=== PATIENT | female | born 1995 | race Caucasian/White ===

== ENCOUNTER 2020-04-25 12:45 | Outpatient (REF) | payer OTHER, MEDICAID, SELFPAY | END 2020-04-25 12:46 | disposition home or self-care (01) | LOC: HO.LAB 12:45 | PROVIDERS: PCP Internal Medicine; Visit Provider Internal Medicine | DX: Z20.822 Contact with and (suspected) exposure to COVID-19 (principal) | CPT/HCPCS: 36415; C9803; U0003 ==

== ENCOUNTER 2021-10-21 12:58 | Outpatient (REF) | payer OTHER, SELFPAY ==
[2021-10-21 13:13] LABS: MANUAL DIFF FLAG NO
[2021-10-21 13:24] LABS: Basophils Absolute Auto 0.1 X10*3/uL (0.0-0.2); Basophils Percent Auto 0.8 % (0-2); Eosinophils Absolute Auto 0.3 X10*3/uL (0.0-0.4); Eosinophils Percent Auto 3.3 % (0-4); Hematocrit 38.1 % (37.0-47.0); Hemoglobin 12.9 g/dl (12.0-16.0); Imm Gran Abs Auto 0.02 X10*3/uL (0.00-0.03); Imm Gran Pct Auto 0.2 % (0.0-0.4); Lymphocytes Absolute Auto 3.1 X10*3/uL (1.2-4.9); Mean Corpuscular HGB Conc 33.9 g/dl (31.0-35.0); Mean Corpuscular Hemoglobin 30.3 pg (27.0-33.0); Mean Corpuscular Volume 89.4 fL (80.0-98.0); Mean Platelet Volume 10.7 fL (9.4-12.3); Monocytes Absolute Auto 0.7 X10*3/uL (0.1-1.2); Monocytes Percent Auto 7.7 % (2-11); Neutrophils Absolute Auto 4.7 x10*3/uL (2.0-8.3); Platelet Count 270 X10*3/uL (160-400); Red Blood Count 4.26 X10*6/uL (4.20-5.50); Red Cell Distribution Width 12.2 % (11.0-16.0); White Blood Count 8.9 X10*3/uL (4.8-10.8)
[2021-10-21 13:50] LABS: Alanine Aminotransferase 11 U/L (0-31); Albumin Level 4.5 g/dL (3.5-5.0); Alkaline Phosphatase 157 U/L (39-117); Anion Gap 10 (12-20); Aspartate Amino Transferase 16 U/L (5-31); Bilirubin Total 0.6 mg/dL (0.0-1.0); Blood Urea Nitrogen 12 mg/dL (9-16); Calcium 8.7 mg/dL (8.4-10.2); Carbon Dioxide 23 mmol/L (22-29); Chloride 110 mmol/L (96-108); Cholesterol 154 mg/dL; Estimated Glomerular Filt Rate > 60; Glucose Random 81 mg/dL (60-115); HDL Cholesterol 47 mg/dL; LDL Cholesterol Calculated 100 mg/dl; Potassium 4.2 mmol/L (3.3-5.1); Sodium 139 mmol/L (135-145); Total Protein 7.3 g/dL (6.5-8.0); Triglycerides 36 mg/dL
== END 2021-10-21 12:59 | disposition home or self-care (01) ==
LOC: HO.LAB 12:58
PROVIDERS: PCP Internal Medicine; Visit Provider Internal Medicine
DX: Z00.00 Encounter for general adult medical examination without abnormal findings (principal); E88.2 Lipomatosis, not elsewhere classified; J45.909 Unspecified asthma, uncomplicated; M54.50 Low back pain, unspecified
CPT/HCPCS: 36415; 80053; 80061; 85025

== ENCOUNTER → 2021-11-06 13:05 | Outpatient (BNVA) | payer OTHER, SELFPAY | PROVIDERS: PCP Internal Medicine; Visit Provider Surgery | DX: D17.1 Benign lipomatous neoplasm of skin and subcutaneous tissue of trunk (principal) | CPT/HCPCS: 99202 ==

== ENCOUNTER 2021-11-20 08:20 | Outpatient (REF) | payer OTHER, SELFPAY | END 2021-11-20 08:21 | disposition home or self-care (01) | LOC: HO.MS 08:20 | PROVIDERS: PCP Internal Medicine; Visit Provider Surgery | DX: D17.1 Benign lipomatous neoplasm of skin and subcutaneous tissue of trunk (principal); Z53.8 Procedure and treatment not carried out for other reasons; D17.0 Benign lipomatous neoplasm of skin and subcutaneous tissue of head, face and neck ==

== ENCOUNTER → 2021-11-27 10:33 | Outpatient (BNVA) | payer OTHER, SELFPAY | PROVIDERS: PCP Internal Medicine; Visit Provider Surgery | DX: D17.1 Benign lipomatous neoplasm of skin and subcutaneous tissue of trunk (principal) | CPT/HCPCS: 99212 ==

== ENCOUNTER 2022-01-29 11:42 | Outpatient (REF) | payer OTHER, SELFPAY ==
[2022-01-29 10:55] VITALS: BP 110/65; PULSE 68; RESP 16; TEMP 36.5; O2SAT 99
[2022-01-29 10:56] VITALS: BMI 29.5
[2022-01-29 12:07] VITALS: BP 98/64; PULSE 66; RESP 16; O2SAT 99
--- NOTE | 2022-01-29 12:11 | MHC.SHP ---
Pre-Procedural Eval Section A Date of Service: 01/29/22 The patient is an INPATIENT: No The History & Physical has been completed within 30 days and I have reviewed it.: No Section B Chief Complaint: Benign lipomatous neoplasm of skin and subcutaneou Details of Present Illness: The patient denies interval change since her visit in November. The lipoma on her right posterior neck continues to be bothersome regarding clothes and jewelry. She remains interested in removal. The risks of bleeding, infection, scar and recurrence were all reviewed. The unlikely but possible issue of a seroma was also discussed with the patient as well as lymphatic leak. Relevant Family History (Specify if Yes): No Relevant Social History: None Present Medications: see Short Stay Collaborative assessment Medical History: No relevant PMH History of Previous Operations: No relevant previous surgery Allergies: Allergies Allergy/AdvReac Type Severity Reaction Status Date / Time egg Allergy Unknown Rash Verified 11/27/21 10:38 Fish Containing Products Allergy Unknown upset Verified 11/27/21 10:38 stomach,diarrhea,itchy throat Review of Systems Sugical H&P ROS: Negative: Constitution, Cardiovascular, Respiratory, Neurological, Psychiatric, Hem-Onc, Allergic/Immunologic, Gastrointestinal, Genitourinary, Musculoskeletal, Integumentary, Endocrine and Eyes/Ears/Nose/Throat Exam Surgical H&P Exam: Normal: Heart, Normal: Lungs, Normal: Extremities, Normal: Abdomen, Normal: Skin and Normal: Neurological and Not Evaluated: HEENT (2 cm by 2.5 cm lipomatous mass right posterior neck) Exam Comment: No cervical adenopathy is noted. The lipomatous mass in the right posterior neck is essentially unchanged and measuring approximately 2.0 x 2.5 cm Plan Diagnosis/Plan: Unchanged I have reviewed the history and physical and performed a pertinent physical examination on my patient. No changes have occurred unless specified.
--- NOTE | 2022-01-29 12:14 | W.PM.OPN ---
Operative Note Operative Note Date of Service: 01/29/22 Narrative: Preop diagnosis: [Symptomatic lipoma, 2.0 x 2.5 cm, right posterior neck] Postop diagnosis: [Same, path pending, possible lymph node] Procedure: [Excision of a 2.0 x 2.5 cm lipomatous mass, right posterior neck with intermediate closure of a 2.5 cm incision] Surgeon: Spencer Bryant MD Assist: [none] Anesthesia: [lidocaine, 2% w/ epi] Estimated blood loss: [3cc] Specimen: [Lipomatous mass, right posterior neck] Intraoperative findings: [Round, lipomatous verses lymph node] Indications: [The patient is a 26-year-old woman who has had a slowly enlarging lipomatous lesion in the right posterior neck that is irritating when she wears clothing and jewelry. Because it likely represents a symptomatic lipoma we discussed the option of excision versus continued observation. I reviewed the inherent risks of scar, bleeding, infection, lipoma recurrence, the unlikely but possible issue of a lymph node or other unexpected pathology being present, the unlikely but possible issues of seroma in the fatty clicks were also discussed and apparently understood. Activity restrictions were reviewed and apparently understood. The patient seemed understand her options, declined a 2nd opinion wanted to proceed.] Procedure: [The patient was brought into the procedure room in an appropriate time-out performed. She was seated on the side of the bed and her right posterior neck was cleansed with multiple layers of isopropyl alcohol that was allowed to dry for 3 minutes. She was then draped in the usual manner and the lipomatous nodule in the right posterior neck marked with a skin marker and local infiltrated with excellent effect. Next, a transverse incision measuring 2.5 cm was made over the mass and dissection carried down to the mass. It was superficial to the trapezius fascia but deep in the subcutaneous tissues, requiring careful dissection. Once it was removed, it was sent for permanent section. Operative field was irrigated and inspected for hemostasis which was good. An intermediate closure using interrupted 3-0 Polysorb to obliterate the subcutaneous tissues empty space previously occupied by the lipoma was performed and 3-0 polypropylene sutures were used on the skin. The area was then washed and dried, bacitracin and a Band-Aid applied. Patient tolerated the procedure well. Instructions regarding incision care and activity reviewed and apparently understood. Patient will apply an ice pack through today in follow-up with me in 1 week for suture removal]
== END 2022-01-29 11:43 | disposition home or self-care (01) ==
LOC: HO.MS 11:42
PROVIDERS: PCP Internal Medicine; Visit Provider Surgery
PROC: (CPT 21552; principal; 2022-01-29 11:30)
DX: D17.0 Benign lipomatous neoplasm of skin and subcutaneous tissue of head, face and neck (principal)
CPT/HCPCS: 21552; 88304

== ENCOUNTER 2022-12-21 11:56 | Outpatient (REF) | payer OTHER, SELFPAY ==
[2022-12-22 04:21] LABS: HBS Num1 0.26 mIU/mL (0-7.99); ~Hepatitis B Surface Antibody NONREACTIVE (Nonreactive)
[2022-12-24 00:48] LABS: TS Negative Control Passed; TS Panel A 0; TS Panel B 0; TS Positive Control Passed; TSpotTB Negative (Negative)
== END 2022-12-21 11:57 | disposition home or self-care (01) ==
LOC: HO.10HDL 11:56
PROVIDERS: Visit Provider Internal Medicine
DX: Z01.84 Encounter for antibody response examination (principal); Z11.1 Encounter for screening for respiratory tuberculosis
CPT/HCPCS: 36415; 86481; 86706; 86735; 86762; 86765; 86787